=== PATIENT | female | born 1965 | race Hispanic/Latino ===

== ENCOUNTER 2018-08-28 12:15 | Emergency (ER) | payer SELFPAY ==
--- NOTE | 2018-08-28 12:56 | RAD REPORT ---
EXAM DESCRIPTION: CT - Head Brain Wo Cont - 08/28/2018 12:50 pm CLINICAL HISTORY: Dizziness, syncope COMPARISON: July 2016 TECHNIQUE: Axial 5 mm thick images of the head were obtained without IV contrast. All CT scans are performed using dose optimization technique as appropriate and may include automated exposure control or mA/KV adjustment according to patient size. FINDINGS: No intracranial hemorrhage, mass, edema or shift of mid-line structures. No acute infarcti on changes seen. No abnormal extra-axial fluid collections. Ventricles are normal. Mastoid air cells and middle ears are clear. Paranasal sinuses are clear. No acute bony findings. IMPRESSION: Negative non-contrast CT head examination. No significant change from the 2016 comparis on.
--- NOTE | 2018-08-28 13:02 | RAD REPORT ---
EXAM DESCRIPTION: Mark Single View08/28/2018 12:55 pm CLINICAL HISTORY: Chest pain COMPARISON: 2016 FINDINGS: The lungs appear clear of acute infiltrate. The heart is normal size IMPRESSION: No acute abnormalities displayed
[2018-08-28 13:29] LABS: Absolute Lymphocytes (CBC) 2.3 K/uL (0.7-4.9); Absolute Monocytes 0.5 K/uL (0.1-1.3); Basophils % 0.4 % (0-1.3); Eosinophils % 1.3 % (0-4.4); Lymphocytes % 28.6 % (15.3-44.8); MCH 28.6 pg (27.0-35.0); MCV 85.4 fL (80-100); MPV 10.3 fL (7.6-11.3); Monocytes % 6.6 % (3.3-12.3); RBC Red Blood Cell Count 5.03 M/uL (3.86-4.86)
[2018-08-28 13:30] LABS: Protime INR 1.15
[2018-08-28 13:52] LABS: Urine Amorphous Sediment 1+ /HPF (NONE SEEN); Urine Bacteria <20 /HPF (<20); Urine Culture Reflex Order NOT NEEDED; Urine RBC <5 /HPF (NONE SEEN)
[2018-08-28 13:59] LABS: ALT/SGPT 19 U/L (12-78); AST/SGOT 13 U/L (15-37); Albumin 3.9 g/dL (3.4-5.0); Alkaline Phosphatase 63 U/L (45-117); BUN Blood Urea Nitrogen 18 mg/dL (7-18); Bicarbonate 27 mmol/L (21-32); Bilirubin Direct 0.1 mg/dL (0-0.2); Bilirubin Total 0.3 mg/dL (0.2-1.0); Glucose Level 95 mg/dL (74-106); Magnesium 2.3 mg/dL (1.8-2.4); NT PRO-BNP 55 pg/mL (<125); Potassium 3.9 mmol/L (3.5-5.1); Protein, Total 7.7 g/dL (6.4-8.2); Sodium Level 140 mmol/L (136-145); Troponin (Emerg Dept Use Only) < 0.02 ng/mL (0.0-0.045)
[2018-08-28 15:06] LABS: Urine Blood TRACE (NEG); Urine Glucose NEGATIVE (NEG); Urine Protein NEGATIVE (NEG); Urine Specific Gravity 1.025 (1.005-1.030)
--- NOTE | 2018-08-28 17:45 | EKG ---
Test Date: 2018-08-28 Test Time: 15:10:14 Emergency Vehicle Dispatcher: RED MEASUREMENT RESULTS: Intervals: Rate: 66 MI: 156 QRSD: 80 QT: 412 QTc: 431 [place]: P: 51 MI: 156 QRS: 57 T: 63 INTERPRETIVE STATEMENTS: Normal sinus rhythm Normal ECG Compared to ECG 08/28/2018 12:25:17 No significant changes Electronically Signed On 08-28-18 17:44:18 AIR VALVE MECHANIC by Vinicius Cardenas
--- NOTE | 2018-08-28 17:46 | EKG ---
Test Date: 2018-08-28 Test Time: 12:25:17 Supervisor Calibration: NADINE MEASUREMENT RESULTS: Intervals: Rate: 84 [place]: 160 QRSD: 82 QT: 358 QTc: 423 [place]: P: 47 [place]: 160 QRS: 55 T: 62 INTERPRETIVE STATEMENTS: Normal sinus rhythm Normal ECG No previous ECG available for comparison Electronically Signed On 08-28-18 17:46:03 FOREIGN EXCHANGE POSITION CLERK by Vinicius Cardenas
--- NOTE | 2018-08-28 17:54 | ER ---
Nurse's Notes [facility] Name: Nemo Knight Age: 53 yrs Sex: Female : 1965 Arrival Date: 08/28/2018 Time: 12:19 Bed 20 Private MD: Diagnosis: Chest pain, unspecified Presentation: 08/28 12:19 Presenting complaint: Patient states: sitting at work when suddenly approximately 30 ss minutes ago, began experiencing dizziness and slight L sided chest tightness and intermittent palpitations. Transition of care: patient was not received from another setting of care. Onset of symptoms was August 28, 2018. Risk Assessment: Do you want to hurt yourself or someone else? Patient reports no desire to harm self or others. Initial Sepsis Screen: Does the patient meet any 2 criteria? No. Patient's initial sepsis screen is negative. Does the patient have a suspected source of infection? No. Patient's initial sepsis screen is negative. Care prior to arrival: None. 12:19 Method Of Arrival: EMS: [facility] 12:19 Acuity: CAROL 3 ss Historical: - Allergies: 12:20 NKDA; ss - PMHx: 17:52 Hypertension; Glaucoma; gs - Immunization history:: Adult Immunizations up to date. - Social history:: Smoking status: Patient/guardian denies using tobacco, the patient reports quitting approximately 7 years ago. - Ebola Screening: : Patient denies exposure to infectious person Patient denies travel to an Ebola-affected area in the 21 days before illness onset. Screenin:00 Fall Risk None identified. ca1 13:40 Abuse screen: Denies threats or abuse. Nutritional screening: No deficits noted. ca1 Tuberculosis screening: No symptoms or risk factors identified. Assessment: 13:00 General: Appears in no apparent distress. comfortable, Behavior is calm, cooperative. ca1 Pain: Pain: Complains of pain in anterior aspect of left upper chest Pain does not radiate. Pain at worst was 8 out of 10 on a pain scale. Quality of pain is described as tightness Pain began suddenly, 2 hours ago. Is intermittent. 13:00 Neuro: Level of Consciousness is awake, alert, obeys commands, Oriented to person, ca1 place, time, situation. Neuro: Reports dizziness, since 2-3 hours ago. Cardiovascular:. Cardiovascular: Reports Heart tones S1 S2 present Capillary refill < 3 seconds Rhythm is regular. Respiratory: Airway is patent Trachea midline Respiratory effort is even, unlabored, Respiratory pattern is regular, symmetrical, Breath sounds are clear bilaterally. GI: No signs and/or symptoms were reported involving the gastrointestinal system. : No signs and/or symptoms were reported regarding the genitourinary system. EENT: No signs and/or symptoms were reported regarding the EENT system. Derm: Skin is intact, is healthy with good turgor, Skin is pink, warm \T\ dry. Musculoskeletal: No signs and/or symptoms reported regarding the musculoskeletal system. 14:00 Reassessment: Patient appears in no apparent distress at this time. No changes from hb previously documented assessment. Patient and/or family updated on plan of care and expected duration. Pain level reassessed. Patient is alert, oriented x 3, equal unlabored respirations, skin warm/dry/pink. 14:50 Reassessment: Patient appears in no apparent distress at this time. No changes from hb previously documented assessment. Patient and/or family updated on plan of care and expected duration. Pain level reassessed. Patient is alert, oriented x 3, equal unlabored respirations, skin warm/dry/pink. 15:10 Reassessment:. Cardiovascular: Chest pain is described as Pain is 5 out of 10 on a pain ca1 scale. quality is tightness. is located in left began suddenly, episodes are continuous Dr. Morales notified. Repeat EKG ordered. 16:06 Reassessment: Patient appears in no apparent distress at this time. Patient and/or hb family updated on plan of care and expected duration. Pain level reassessed. Patient is alert, oriented x 3, equal unlabored respirations, skin warm/dry/pink. Pt reports mild chest discomfort 3/10. Dr. Morales aware. No new orders at this time. 18:11 Reassessment: No changes from previously documented assessment. Patient and/or family mg2 updated on plan of care and expected duration. Pain level reassessed. Patient is alert, oriented x 3, equal unlabored respirations, skin warm/dry/pink. Vital Signs: 12:20 BP 157 / 88; Pulse 88; Resp 16; Pulse Ox 98% on R/A; Weight 72.57 kg; Height 5 ft. 4 ss in. (162.56 cm); Pain 0/10; 13:40 BP 143 / 80; Pulse 75; Resp 19; Pulse Ox 98% ; Pain 0/10; ca1 14:50 BP 145 / 83; Pulse 77; Resp 16; Pulse Ox 100% on R/A; Pain 0/10; hb 16:00 BP 146 / 89; Pulse 94; Resp 18; Pulse Ox 98% on R/A; hb 18:11 BP 159 / 84; Pulse 90; Resp 18; Pulse Ox 100% on R/A; Pain 0/10; mg2 12:20 Body Mass Index 27.46 (72.57 kg, 162.56 cm) ED Course: 12:19 Patient arrived in ED. ss 12:19 Emmanuel Morales MD is Attending Physician. gs 12:20 Triage completed. ss 12:20 Arm band placed on right wrist. ss 12:38 EKG done, by lighting technician. reviewed by Emmanuel Morales MD. at1 12:[address] via wheelchair. ca1 12:50 CT Head Brain wo Cont In Process Unspecified. EDMS 12:50 Patient has correct armband on for positive identification. Placed in gown. Bed in low ca1 position. Call light in reach. Side rails up X 1. 12:54 X-ray completed. Portable x-ray completed in exam room. Patient tolerated procedure mh1 well. 12:56 XRAY Chest (1 view) In Process Unspecified. EDMS 13:00 campus monitor on. Pulse ox on. NIBP on. ca1 13:00 Inserted saline lock: 20 gauge in left antecubital area, using aseptic technique. Blood ca1 collected. Patient maintains SpO2 saturation greater than 95% on room air. 13:47 Andree Saavedra, RN is Primary Nurse. hb 15:15 REPEAT EKG WAS DONE. sm3 16:50 Repeat lab(s) drawn. by mt, sent to lab. dh3 18:11 No provider procedures requiring assistance completed. IV discontinued, intact, mg2 bleeding controlled, No redness/swelling at site. Pressure dressing applied. Administered Medications: No medications were administered Outcome: 17:54 Discharge ordered by . gs 18:16 Discharged to home ambulatory. hb 18:16 Condition: stable 18:16 Discharge instructions given to patient, Instructed on discharge instructions, follow up and referral plans. medication usage, Demonstrated understanding of instructions, follow-up care, medications. 18:16 Patient left the ED. hb Signatures: Dispatcher [employer] EDVT Anjelica Martinez 1 Marline Harrison, RN RN Isaura Wolf, director of billing EKG Tat1 Madelyn Freire, RN RN rb1 Andree Saavedra RN RN Oma Ruiz 3 Emmanuel Morales MD MD Misbah Hennessy RN RN mg2 Nerissa Garcia 3 Mariana Josue RN RN ca1 Corrections: (The following items were deleted from the chart) 13:10 Inserted saline lock: 20 gauge in left antecubital area, using aseptic technique. rb1 Blood collected. rb1 13:10 Initial lab(s) drawn, by me, sent to lab. rb1 rb1 13: 12:50 campus monitor on. Pulse ox on. NIBP on. ca1 ca1 :40 13:30 General: Appears in no apparent distress. comfortable, Behavior is calm, ca1 cooperative, ca1 13:40 13:30 Pain: ca1 ca1 13:42 13:40 Fall Risk None identified. ca1 ca1
--- NOTE | 2018-08-28 17:54 | EDPHYS ---
Physician Documentation [facility] Name: Nemo Knight Age: 53 yrs Sex: Female : 1965 Arrival Date: 08/28/2018 Time: 12:19 Bed 20 Private MD: ED Physician Emmanuel Morales HPI: 08/28 18:00 This 53 yrs old Female presents to ER via EMS with complaints of Chest Pain. gs 18:00 The patient or guardian reports chest pain that is located primarily in the anterior gs chest wall. Onset: today. The pain does not radiate. Associated signs and symptoms: Pertinent positives: dizziness. The chest pain is described as dull. Duration: The patient or guardian reports multiple episodes, that are intermittent, that wax and wane, with no pattern, the episodes last approximately 5 second(s). Modifying factors: The symptoms are alleviated by nothing. the symptoms are aggravated by nothing. Severity of pain: At its worst the pain was moderate in the emergency department the pain has resolved. Historical: - Allergies: 12:20 NKDA; ss - PMHx: 17:52 Hypertension; Glaucoma; gs - Immunization history:: Adult Immunizations up to date. - Social history:: Smoking status: Patient/guardian denies using tobacco, the patient reports quitting approximately 7 years ago. - Ebola Screening: : Patient denies exposure to infectious person Patient denies travel to an Ebola-affected area in the 21 days before illness onset. ROS: 18:00 All other systems are negative. gs Exam: 18:00 Head/Face: Normocephalic, atraumatic. Eyes: Pupils equal round and reactive to light, gs extra-ocular motions intact. Lids and lashes normal. Conjunctiva and sclera are non-icteric and not injected. Cornea within normal limits. Periorbital areas with no swelling, redness, or edema. ENT: Nares patent. No nasal discharge, no septal abnormalities noted. Tympanic membranes are normal and external auditory canals are clear. Oropharynx with no redness, swelling, or masses, exudates, or evidence of obstruction, uvula midline. Mucous membranes moist. Neck: Trachea midline, no thyromegaly or masses palpated, and no cervical lymphadenopathy. Supple, full range of motion without nuchal rigidity, or vertebral point tenderness. No Meningismus. Chest/axilla: Normal chest wall appearance and motion. Nontender with no deformity. No lesions are appreciated. 18:00 Constitutional: The patient appears alert, awake. 18:00 Cardiovascular: Rate: normal, Rhythm: regular, Pulses: no pulse deficits are appreciated, Heart sounds: normal. 18:00 ECG was reviewed by the Attending Physician. 18:03 Respiratory: Lungs have equal breath sounds bilaterally, clear to auscultation and gs percussion. No rales, rhonchi or wheezes noted. No increased work of breathing, no retractions or nasal flaring. Abdomen/GI: Soft, non-tender, with normal bowel sounds. No distension or tympany. No guarding or rebound. No evidence of tenderness throughout. Back: No spinal tenderness. No costovertebral tenderness. Full range of motion. Skin: Warm, dry with normal turgor. Normal color with no rashes, no lesions, and no evidence of cellulitis. MS/ Extremity: Pulses equal, no cyanosis. Neurovascular intact. Full, normal range of motion. Neuro: Awake and alert, GCS 15, oriented to person, place, time, and situation. Cranial nerves II-XII grossly intact. Motor strength 5/5 in all extremities. Sensory grossly intact. Cerebellar exam normal. Normal gait. 18:03 ECG was reviewed by the Attending Physician. Vital Signs: 12:20 BP 157 / 88; Pulse 88; Resp 16; Pulse Ox 98% on R/A; Weight 72.57 kg; Height 5 ft. 4 ss in. (162.56 cm); Pain 0/10; 13:40 BP 143 / 80; Pulse 75; Resp 19; Pulse Ox 98% ; Pain 0/10; ca1 14:50 BP 145 / 83; Pulse 77; Resp 16; Pulse Ox 100% on R/A; Pain 0/10; hb 16:00 BP 146 / 89; Pulse 94; Resp 18; Pulse Ox 98% on R/A; hb 18:11 BP 159 / 84; Pulse 90; Resp 18; Pulse Ox 100% on R/A; Pain 0/10; mg2 12:20 Body Mass Index 27.46 (72.57 kg, 162.56 cm) ss MDM: 12:34 Patient medically screened. gs 18:03 Differential diagnosis: coronary artery disease chest wall pain, pneumonia, pulmonary gs embolus. Data reviewed: vital signs, nurses notes. Counseling: I had a detailed discussion with the patient and/or guardian regarding: the historical points, exam findings, and any diagnostic results supporting the discharge/admit diagnosis, lab results, radiology results, the need for outpatient follow up. 08/28 12:34 Order name: Basic Metabolic Panel 08/28 12:34 Order name: CBC with Diff 08/28 12:34 Order name: LFT's; Complete Time: 15:11 08/28 12:34 Order name: Magnesium; Complete Time: 15:11 08/28 12:34 Order name: NT PRO-BNP; Complete Time: 15:11 08/28 12:34 Order name: PT-INR; Complete Time: 15:11 08/28 12:34 Order name: Troponin (emerg Dept Use Only); Complete Time: 15:11 08/28 12:34 Order name: XRAY Chest (1 view); Complete Time: 13:25 08/28 12:34 Order name: Urine Microscopic Only; Complete Time: 15:11 08/28 12:34 Order name: D-Dimer; Complete Time: 15:11 08/28 12:35 Order name: Basic Metabolic Panel; Complete Time: 15:11 EDNY 08/28 17:09 Interpretation: CL 108. 08/28 12:35 Order name: CBC with Automated Diff; Complete Time: 15:11 EDNY 08/28 13:25 Order name: Urine Dipstick--Ancillary (enter results); Complete Time: 15:11 08/28 15:44 Order name: Troponin (emerg Dept Use Only); Complete Time: 17:45 08/28 12:34 Order name: EKG; Complete Time: 12:35 08/28 12:34 Order name: Cardiac monitoring; Complete Time: 13:47 08/28 12:34 Order name: EKG - Nurse/Tech; Complete Time: 13:47 08/28 12:34 Order name: IV Saline Lock; Complete Time: 13:47 08/28 12:34 Order name: Labs collected and sent; Complete Time: 13:47 08/28 12:34 Order name: O2 Per Protocol; Complete Time: 13:47 08/28 12:34 Order name: O2 Sat Monitoring; Complete Time: 13:47 08/28 12:34 Order name: Urine Dipstick-Ancillary (obtain specimen); Complete Time: 13:47 gs 08/28 12:34 Order name: CT Head Brain wo Cont; Complete Time: 13:25 gs 08/28 15:20 Order name: EKG; Complete Time: 15:21 ca1 08/28 15:20 Order name: EKG - Nurse/Tech; Complete Time: 15:32 ca1 EC:00 Rate is 84 beats/min. Rhythm is regular. CT interval is normal. QRS interval is normal. gs T waves are Normal. No ST changes noted. Clinical impression: Normal ECG. Interpreted by me. 18:03 Rate is 66 beats/min. Rhythm is regular. CT interval is normal. QRS interval is normal. gs QT interval is normal. T waves are Normal. No ST changes noted. Clinical impression: Normal ECG. Interpreted by me. Administered Medications: No medications were administered Disposition: 08/28/18 17:54 Discharged to Home. Impression: Chest pain, unspecified. - Condition is Stable. - Discharge Instructions: Nonspecific Chest Pain. - Medication Reconciliation Form, Thank You Letter, Antibiotic Education, Prescription Opioid Use, Work release form form. - Follow up: Emergency Department; When: 2 - 3 days; Reason: Re-evaluation by your physician. Signatures: Dispatcher [employer] EDMS Marline Harrison RN RN Andree Saavedra RN RN Emmanuel Morales MD MD Mariana Josue RN RN ca1 Corrections: (The following items were deleted from the chart) 18:16 17:54 08/28/2018 17:54 Discharged to Home. Impression: Chest pain, unspecified. hb Condition is Stable. Forms are Medication Reconciliation Form, Thank You Letter, Antibiotic Education, Prescription Opioid Use. Follow up: Emergency Department; When: 2 - 3 days; Reason: Re-evaluation by your physician.
== END 2018-08-28 18:16 | disposition home or self-care (01) ==
LOC: ER 12:15
DX: R07.9 Chest pain, unspecified (principal); I10 Essential (primary) hypertension
CPT/HCPCS: 36415; 70450; 71045; 80048; 80076; 81003; 81015; 83735; 83880; 84484; 85025; 85379; 85610; 93005; 99285

== ENCOUNTER 2024-11-14 13:49 | Emergency (ER) | payer BC, SELFPAY ==
--- NOTE | 2024-11-14 14:39 | RAD REPORT ---
EXAM: Chest Single View HISTORY: 59 years Female CHEST PAIN COMPARISON: 08/28/2018 FINDINGS: LUNGS/PLEURA: The lungs are clear. No pleural effusions or pneumothorax. No pulmonary edema. CARDIAC/MEDIASTINUM: The cardiac silhouette is within normal limits. UPPER ABDOMEN: No significant abnormality. BONES: No acute abnormality. LINES/TUBES/OTHER: N/A IMPRESSION: No evidence of acute cardiopulmonary disease.
[2024-11-14 14:43] LABS: Absolute Eosinophils 0.2 K/uL (0-0.5); Absolute Lymphocytes (CBC) 2.4 K/uL (0.7-4.9); Absolute Monocytes 0.4 K/uL (0.1-1.3); Absolute Neutrophil 2.8 K/uL (1.8-8.0); Basophils % 0.6 % (0-1.3); Eosinophils % 2.8 % (0-4.4); Hematocrit 37.2 % (36.0-45.0); Hemoglobin 12.7 g/dL (12.0-15.0); Lymphocytes % 41.8 % (15.3-44.8); MCH 28.3 pg (27.0-35.0); MCV 83.1 fL (80-100); MPV 9.6 fL (7.6-11.3); Neutrophils % 47.8 % (41.7-73.7); Nucleated Red Blood Cells % 0.1 % (0-0); Platelets 227 thou/uL (152-406); RBC Red Blood Cell Count 4.48 M/uL (3.86-4.86); Red Cell Distribution Width 14.1 % (12.1-15.2)
[2024-11-14 14:51] LABS: PT Prothrombin Time 12.8 SECONDS (10.0-13.0); Protime INR 1.13
[2024-11-14] MEDS ORDERED: ASPIRIN 81 MG CHEWABLE TABLET ONE (14:52)
[2024-11-14 15:03] LABS: ALT/SGPT 19 U/L (13-56); AST/SGOT 13 U/L (15-37); Albumin 3.4 g/dL (3.4-5.0); Albumin/Globulin Ratio 0.9 (1.1-1.8); Alkaline Phosphatase 56 U/L (45-117); Anion Gap 11.4 mEq/L (5.0-15.0); BUN Blood Urea Nitrogen 17 mg/dL (7-18); Bicarbonate 26 mEq/L (21-32); Bilirubin Total 0.4 mg/dL (0.2-1.0); Globulin 3.7 g/dL (2.3-3.5); Glomerular Filtration Rate 71 ml/min (=/>90); Glucose Level 133 mg/dL (74-106); NT PRO-BNP 69 pg/mL (<125); Potassium 3.4 mEq/L (3.5-5.1); Protein, Total 7.1 g/dL (6.4-8.2); Sodium Level 142 mEq/L (136-145)
[2024-11-14 15:04] LABS: Bilirubin Direct < 0.2 mg/dL (0-0.2); Bilirubin Indirect, Calculated 0.2 mg/dL (0.2-0.8); Troponin High Sensitivity < 3.0 pg/mL (<58.9)
[2024-11-14] MEDS ORDERED: NITROGLYCERIN 0.4 MG/TAB SL ONE (15:29)
--- NOTE | 2024-11-14 15:59 | RAD REPORT ---
EXAMINATION: CTA CHEST PE CLINICAL INDICATION: Female, 59 years old. CHEST PAIN TECHNIQUE: This examination was performed according to an angiographic protocol with 3D post-processi ng. This involves 3D reconstructions, MIPs, volume rendered images and/or shaded surface rendering. One or more of the following dose reduction techniques were used: Automated exposure control, adjustm ent of the mA and/or kV according to patient size, and/or iterative reconstruction. Unless otherwise specified, incidental findings do not require dedicated imaging follow-up. [id number]. COMPARISON: No priors. FINDINGS: LOWER NECK: Visualized thyroid gland and soft tissues are normal. LUNGS AND AIRWAYS: Airways are clear. No evidence of airspace or interstitial process.No suspicious a nd/or stable pulmonary nodules. PLEURA: No pleural effusion. No pneumothorax. Hemidiaphragms are normally positioned. MEDIASTINUM AND LYMPH NODES: No mediastinal mass or fluid collection. Normal size mediastinal, hilar, and axillary lymph nodes. Mild distal esophageal thickening. Small hiatal hernia. THORACIC AORTA: No thoracic aortic aneurysm. Atherosclerotic changes are present. PULMONARY ARTERIES: Caliber is within normal limits. No pulmonary emboli identified to the level of t he segmental pulmonary arteries. The subsegmental pulmonary arteries cannot be adequately assessed due to suboptimal contrast opacification. HEART: Normal heart size. No coronary calcifications.No significant pericardial effusion. OSSEOUS STRUCTURES AND CHEST WALL: No fracture or suspicious osseous lesions. UPPER ABDOMEN: No acute abnormalities.Several low-density liver lesions which are incompletely charac terized though the overall imaging features are benign. Partially imaged left adrenal nodule measuring at least 2 cm. This has Hounsfield units of 13. Adrenal Non-Incidental Indeterminate, CT W/ C, No prior, Cancer not RCC/HCC, > 1 - < 4 cm, < 130 HU: Possible adenoma or metastasis. Recommend adrenal washout CT, chemical shift MRI or PET/CT (Consider PET/CT when morphological characteristics suggest metastasis). Reference: JACR 2017 Apr;14(8):1038-44, JCAT 2016 Nov-Dec;40(2):194-200 IMPRESSION: 1. No evidence of pulmonary emboli to the subsegmental level. Lungs are clear. 2. Thickened distal esophagus with small hiatal hernia which may reflect mild esophagitis. 3. Partially imaged, indeterminate left adrenal nodule likely an adenoma. Nonemergent MRI is recommen ded. The liver lesions which are probably benign can also be better characterized in addition to the adrenal nodule.
[2024-11-14] MEDS ORDERED: FAMOTIDINE 20 MG/2 ML VIAL IV ONE (16:12)
--- NOTE | 2024-11-14 16:57 | ER ---
Nurse's Notes [facility] Name: Nemo Knight Age: 59 yrs Sex: Female : 1965 Arrival Date: 11/14/2024 Time: 13:49 Bed 6 Private MD: Diagnosis: Chest pain, unspecified;Gastro-esophageal reflux disease with esophagitis Presentation: 11/14 13:55 Chief complaint: Patient states: she is having pain under her left breast that started ap3 this morning. patient currently rates the pain as an 8/10 on the pain scale. patient also reports shortness of breath. Coronavirus screen: At this time, the client does not indicate any symptoms associated with coronavirus-19. Ebola Screen: No symptoms or risks identified at this time. Initial Sepsis Screen: Does the patient meet any 2 criteria? No. Patient's initial sepsis screen is negative. Does the patient have a suspected source of infection? No. Patient's initial sepsis screen is negative. Risk Assessment: Do you want to hurt yourself or someone else? Patient reports no desire to harm self or others. Onset of symptoms was November 14, 2024. 13:55 Method Of Arrival: Ambulatory ap3 13:55 Acuity: CAROL 2 ap3 Triage Assessment: 13:56 General: Appears in no apparent distress. Behavior is calm, cooperative, appropriate ap3 for age. Pain: Complains of pain in left breast Pain currently is 8 out of 10 on a pain scale. Pain began. Cardiovascular: Patient's skin is warm and dry. Respiratory: Reports shortness of breath Airway is patent Respiratory effort is even, unlabored, Respiratory pattern is regular, symmetrical. Historical: - Allergies: 13:56 unknown steroid; ap3 - PMHx: 13:56 Glaucoma; Hypertension; ap3 - Immunization history:: Client reports receiving the 2nd dose of the Covid vaccine. - Infectious Disease History:: Denies. - Social history:: Smoking status: Patient denies any tobacco usage or history of. Screenin:57 [facility] ED Fall Risk Assessment (Adult) History of falling in the last 3 months, ap3 including since admission No falls in past 3 months (0 pts) Confusion or Disorientation No (0 pts) Intoxicated or Sedated No (0 pts) Impaired Gait No (0 pts) Mobility Assist Device Used No (0 pt) Altered Elimination No (0 pt) Score/Fall Risk Level 0 - 2 = Low Risk Oriented to surroundings, Maintained a safe environment, Educated pt \T\ family on fall prevention, incl call for assistance when getting out of bed, Assessed \T\ reinforced patient's understanding of fall precautions, Hourly rounding (assess needs \T\ fall precautionary measures) done, Used ambulatory aids as needed (educated on \T\ assisted with). Abuse screen: Denies threats or abuse. Nutritional screening: No deficits noted. Tuberculosis screening: No symptoms or risk factors identified. Assessment: 10:00 General: Appears in no apparent distress. uncomfortable, Behavior is calm, cooperative, bp appropriate for age. Vital Signs: 13:55 BP 143 / 74; Pulse 63; Resp 18; Temp 97.6; Pulse Ox 100% ; Weight 74.84 kg; Height 5 ap3 ft. 4 in. ; Pain 8/10; 15:36 BP 140 / 57; Pulse 76; Resp 16; Pulse Ox 99% ; bp 13:55 Body Mass Index 28.32 (74.84 kg, 162.56 cm) ap3 13:55 Pain Scale: Adult ap3 ED Course: 10:00 Patient has correct armband on for positive identification. Provided Education on: NA. bp Client placed on continuous cardiac and pulse oximetry monitoring. NIBP monitoring applied. 13:51 Patient arrived in ED. mr 13:51 Anisha Edwards PA-C is PHCP. sb4 13:51 Santosh Richards MD is Attending Physician. sb4 13:56 Triage completed. ap3 13:57 Arm band placed on right wrist. ap3 13:57 Patient maintains SpO2 saturation greater than 95% on room air. ap3 14:21 XRAY Chest (1 view) In Process Unspecified. EDMS 14:26 Ren Mosqueda, RN is Primary Nurse. bp 15:10 Initial lab(s) drawn, by me, sent to lab. Inserted saline lock: 20 gauge in right bp forearm, using aseptic technique. Blood collected. Flushed with 10 mL NS. 15:45 Chest For PE Angio CT In Process Unspecified. EDMS 16:56 Mello Louis MD is Referral Physician. sb4 16:57 Elbert Mott MD is Referral Physician. sb4 17:19 No provider procedures requiring assistance completed. IV discontinued, intact, ld1 bleeding controlled, No redness/swelling at site. Administered Medications: 15:30 Drug: Aspirin PO 162 mg PO once Route: PO; bp 15:30 Drug: Nitroglycerin Sublingual 0.4 mg Sublingual once Route: Sublingual; bp 16:18 Follow up: Response: No adverse reaction ld1 16:18 Drug: Famotidine IVP 20 mg IVP once; dilute with 10 mL 0.9% NaCl; give over 2 minutes ld1 Route: IVP; Site: right wrist; Medication: 13:58 VIS not applicable for this client. ap3 Outcome: 16:57 Discharge ordered by . sb4 17:19 Discharged to home ambulatory, ld1 17:19 Condition: stable 17:19 Discharge instructions given to patient, Instructed on discharge instructions, follow up and referral plans. Demonstrated understanding of instructions, follow-up care, medications, 17:20 Patient left the ED. ld1 Signatures: Dispatcher [employer] EDMS Bettie Foster, Doni Marion mr Ren Mosqueda RN RN Isaura Ariza RN RN ap3 Kirsty Wright RN RN ld1 Anisha Edwards, PA-Jazmin PA-C sb4
--- NOTE | 2024-11-14 16:57 | EDPHYS ---
Physician Documentation [facility] [place], [place] Name: Nemo Knight Age: 59 yrs Sex: Female : 1965 Arrival Date: 11/14/2024 Time: 13:49 Bed 6 Private MD: ED Physician Santosh Richards HPI: 11/14 14:21 This 59 yrs old Female presents to ER via Ambulatory with complaints of Chest sb4 Pain. 14:21 Patient reports 3 episodes of chest pain this past week. She did see cardiology 2 days sb4 ago where she had a normal EKG and was scheduled to get a stress test and an echocardiogram done. Reports the pain is in her left chest, below her breast, sometimes feels sharp, and sometimes makes her feel like she cannot take a deep breath. Says that she does feel some tingling in her left arm, but otherwise no radiation of pain. Denies any dizziness, nausea, diaphoresis. Historical: - Allergies: 13:56 unknown steroid; ap3 - PMHx: 13:56 Glaucoma; Hypertension; ap3 - Immunization history:: Client reports receiving the 2nd dose of the Covid vaccine. - Infectious Disease History:: Denies. - Social history:: Smoking status: Patient denies any tobacco usage or history of. ROS: 14:21 Constitutional: Negative for fever, chills, and weight loss, sb4 14:21 Cardiovascular: Positive for chest pain, 14:21 All other systems are negative, Exam: 16:58 Constitutional: This is a well developed, well nourished patient who is awake, alert, sb4 and in no acute distress. Head/Face: Normocephalic, atraumatic. Eyes: Extra-ocular motions intact. Periorbital areas with no swelling, redness, or edema. ENT: Mucous membranes moist. Cardiovascular: Regular rate and rhythm with a normal S1 and S2. Respiratory: No increased work of breathing, no retractions or nasal flaring. Abdomen/GI: Soft, non-tender, no distension. Skin: Warm, dry with normal turgor. Normal color with no rashes, no lesions, and no evidence of cellulitis. Vital Signs: 13:55 BP 143 / 74; Pulse 63; Resp 18; Temp 97.6; Pulse Ox 100% ; Weight 74.84 kg; Height 5 ap3 ft. 4 in. ; Pain 8/10; 15:36 BP 140 / 57; Pulse 76; Resp 16; Pulse Ox 99% ; bp 13:55 Body Mass Index 28.32 (74.84 kg, 162.56 cm) ap3 13:55 Pain Scale: Adult ap3 MDM: 13:52 Medical Screening Exam initiated sb4 15:06 Scoring Tools HEART Score: History: ECG: Age: Risk Factors: 1 or 2 risk factors (1), sb4 Troponin: Total Score = 3. 16:58 Data reviewed: vital signs, nurses notes, lab test result(s), EKG, radiologic studies, sb4 and as a result, I will discharge patient. Consideration of Admission/Observation Escalation of care including admission/observation considered. Care significantly affected by the following chronic conditions: Hypertension. Counseling: I had a detailed discussion with the patient and/or guardian regarding the historical points, exam findings, and any diagnostic results supporting the discharge/admit diagnosis, the presence of at least one elevated blood pressure reading (>120/80) during this emergency department visit, lab results, radiology results, the need for outpatient follow up, a hospital coordinator, a community educator, to return to the emergency department if symptoms worsen or persist or if there are any questions or concerns that arise at home. 11/14 14:02 Order name: Basic Metabolic Panel; Complete Time: 15:06 ap3 11/14 14:02 Order name: CBC with Diff; Complete Time: 14:53 3 11/14 14:02 Order name: LFT's; Complete Time: 15:06 3 11/14 14:02 Order name: Magnesium; Complete Time: 15:06 ap3 11/14 14:02 Order name: NT PRO-BNP; Complete Time: 15:06 ap3 11/14 14:02 Order name: PT-INR; Complete Time: 14:53 ap3 11/14 14:02 Order name: Troponin HS; Complete Time: 15:06 ap3 11/14 15:13 Order name: Troponin High Sensitivity: at 1640; Complete Time: 16:49 sb4 11/14 14:02 Order name: XRAY Chest (1 view); Complete Time: 14:40 ap3 11/14 15:24 Order name: Chest For PE Angio CT; Complete Time: 16:00 sb4 11/14 14:02 Order name: Cardiac monitoring; Complete Time: 14:51 ap3 11/14 14:02 Order name: EKG - Nurse/Tech; Complete Time: 14:51 ap3 11/14 14:02 Order name: IV Saline Lock; Complete Time: 14:51 ap3 11/14 14:02 Order name: Labs collected and sent; Complete Time: 14:51 ap3 11/14 14:02 Order name: O2 Per Protocol; Complete Time: 14:51 ap3 11/14 14:02 Order name: O2 Sat Monitoring; Complete Time: 14:51 ap3 EC:15 Rate is 67 beats/min. Rhythm is regular, Normal Sinus Rhythm. GA interval is normal at sb4 152 msec. QRS interval is normal at 78 msec. QT interval is normal at 410 msec. No Q waves. T waves are Normal. Clinical impression: No evidence of ischemia. Interpreted by me. Reviewed by me. Administered Medications: 15:30 Drug: Aspirin PO 162 mg PO once Route: PO; bp 15:30 Drug: Nitroglycerin Sublingual 0.4 mg Sublingual once Route: Sublingual; bp 16:18 Follow up: Response: No adverse reaction ld1 16:18 Drug: Famotidine IVP 20 mg IVP once; dilute with 10 mL 0.9% NaCl; give over 2 minutes ld1 Route: IVP; Site: right wrist; Disposition: 18:12 Co-signature as Attending Physician, Santosh Richards MD I reviewed the patient's care rn provided by the Advanced Practice Provider and agree with the diagnosis and treatment plan. Disposition Summary: 11/14/24 16:57 Discharge Ordered Notes: Location: Home sb4 Problem: new sb4 Symptoms: have improved sb4 Condition: Stable sb4 Diagnosis - Chest pain, unspecified sb4 - Gastro-esophageal reflux disease with esophagitis sb4 Followup: sb4 - With: Mello Louis MD - When: 1 week - Reason: Further diagnostic work-up, Recheck today's complaints, Re-evaluation by your physician Followup: sb4 - With: Elbert Mott MD - When: As needed - Reason: Further diagnostic work-up, Recheck today's complaints, Re-evaluation by your physician Discharge Instructions: - Discharge Summary Sheet sb4 - Food Choices for Gastroesophageal Reflux Disease, Adult sb4 - Esophagitis sb4 - Hiatal Hernia sb4 - Nonspecific Chest Pain, Adult, [id number] sb4 Forms: - Patient Portal Instructions sb4 - Leadership Thank You Letter sb4 Prescriptions: - Protonix 40 mg Oral Tablet - take 1 tablet ORAL route once daily; 30 tablet; Refills: 0, Product Selection sb4 Permitted Signatures: Dispatcher [employer] EDMS Santsoh Richards MD MD rn Peltier, Brian, RN RN bp Isaura Mahan RN RN ap3 Kirsty Wright RN RN ld1 Anisha Edwards PA-C PAArielle sb4 Corrections: (The following items were deleted from the chart) 14:02 14:02 BASIC METABOLIC PANEL+C.LAB.BRZ ordered. EDMS EDMS 14:02 14:02 CBC+H.LAB.BRZ ordered. EDMS EDMS 14:02 14:02 HEPATIC FUNCTION+C.LAB.BRZ ordered. EDMS EDMS 14:02 14:02 MAGNESIUM+C.LAB.BRZ ordered. EDMS EDMS 14:02 14:02 PROBNP+C.LAB.BRZ ordered. EDMS EDMS 14:02 14:02 PROTIME (+INR)+COAG.LAB.BRZ ordered. EDMS EDMS 14:02 14:02 Troponin High Sensitivity+C.LAB.BRZ ordered. EDMS EDMS 14:02 14:02 Chest Single View+RAD.RAD.BRZ ordered. EDMS EDMS 15:13 15:13 Troponin High Sensitivity+C.LAB.BRZ ordered. EDMS EDMS
[2024-11-14 17:24] VITALS: TEMP 97.6
[2024-11-14 17:25] VITALS: BP 140/57; O2SAT 99
== END 2024-11-14 17:20 | disposition home or self-care (01) ==
LOC: ER 13:49
DX: R07.9 Chest pain, unspecified (principal); K21.00 Gastro-esophageal reflux disease with esophagitis, without bleeding; I10 Essential (primary) hypertension; Z88.8 Allergy status to other drugs, medicaments and biological substances
CPT/HCPCS: 93005; 85025; 80048; 36415; 83735; 85610; 80076; 84484 ×2; 83880; 71275; 71045; 96374; 99284; Q9967